=== PATIENT | female | born 1995 | race Caucasian/White ===

== ENCOUNTER → 2022-05-26 | Outpatient (REF) | payer SELFPAY ==
--- NOTE | 2022-05-26 08:45 | CA_ITS ---
Transthoracic Echocardiogram Patient (Last, First, Middle): Janelle Perez, Gender: Female Date of : 1995 Age: 26 Procedure Date: 05/26/2022 Procedure Type: Transthoracic Echocardiogram Location: OP Height: 172.72 cm Weight: 104.33 kg BSA: 2.17 m2 Heart Rate: 74 bpm BP: 122 / 72 mmHg Mounter Clarinets: NEERAJ Referring MD: Obey Yousif MD Symptoms: R06.02 - Shortness of breath Study Quality: Adequate ECG Rhythm: Sinus Conclusions: - Mildly increased left and right ventricular cavity size. However, probably within acceptable limits when indexed for body surface area. - The left ventricular systolic function is normal. The calculated ejection fraction is 60% by biplane method. - No obvious valvular pathology seen on this study. Findings Left Ventricle Mildly increased left ventricular cavity size. There is normal left ventricular wall thickness. The left ventricular systolic function is normal. The calculated ejection fraction is 60% by biplane method. There is no evidence of regional wall motion abnormalities. Diastolic function is normal for age. LV peak GLS -19.8%. Right Ventricle Mildly increased right ventricular cavity size. There is normal right ventricular systolic function. Atria Both atria are normal in size. Aortic Valve There is a normal trileaflet aortic valve. There is no aortic valve stenosis. There is no aortic valve regurgitation. Mitral Valve The mitral valve appears normal. There is no mitral valve regurgitation. There is no mitral valve stenosis. Pulmonic Valve The pulmonic valve is likely normal. Tricuspid Valve Normal tricuspid valve structure. There is no tricuspid valve regurgitation. There is no evidence of pulmonary hypertension. Great Vessels The asc aorta is normal in size. Venous The inferior vena cava is normal in size and collapses greater than 50% with inspiration. Pericardium/Pleural There is no evidence of pericardial effusion. Prior Study Comparison No prior study available for comparison. Recommendations, Care & Conclusions No obvious valvular pathology seen on this study. Measurements 2D Linear Measurements IVSd: 0.76 0.6-0.9/0.6-1.0 cm LVIDd: 6.08 3.9-5.3/4.2-5.9 cm LVIDd Index: 2.80 2.4-3.2/2.2-3.1 cm/m2 LVIDs: 3.88 2.0-3.6 cm LVPWd: 0.72 0.7-1.1 cm LA Diam: 3.60 2.7-3.8/3.0-4.0 cm LAIDs Index: 1.66 1.5-2.3 cm/m2 LV Mass: 215.26 67-162/88-224 g LV Mass Index: 99.20 43-95/49-115 g/m2 LVOT Diam: 2.10 3.0+(-)1.3 cm 2D Systolic Function EF 4C: 58.20 >55% EF 2C: 62.00 >55% EF BiP: 59.50 >55% Mitral Valve MV Pk E: 0.99 MV PK A: 0.52 MV Decel Time: 161.00 E/A: 1.90 E'Lateral: 12.70 E'Medial: 8.70 E/E' Med: 11.30 E/E' Lat: 7.80 PHT: 47.00 MVA PHT: 4.68 Decel [place]: 6.11 Aortic Valve AoV Pk Bon: 1.24 AoV Pk Grad: 6.00 JANELLE: 2.79 LVOT LVOT Pk Bon: 1.00 LVOT Mn Bon: 0.66 LVOT VTI: 0.21 LVOT Pk Grad: 4.00 LVOT Mn Grad: 2.00 LVOT Diam: 2.10 LVOT Area: 3.46 Diastolic Function MV Pk E: 0.99 MV Pk A: 0.52 E/A: 1.90 E'Medial: 8.70 E/E' Med: 11.30 E' Laterial: 12.70 E/E' Lat: 7.80 Right Ventricle TAPSE (mm): 21.40 TVS' Bon: 11.90 Tricuspid Valve TR Pk Bon: 1.95 TR Pk Grad: 15.00 RA Press: 3.00 RVSP: 18.00 Great Vessels Aorta Sinus of Valsalva: 3.20 2.0-3.5 cm Ao Asc: 3.00 2.1-3.4 cm Pulmonary Veins Pulm Vein S/D 1.40 Pulmonary Valve PV Pk Bon: 0.96 Peak PV Grad: 4.00 Updated in Other Vendor System with Status of Final Daniel Garcia MD electronically signed on 05/26/2022 10:25:34 AM with status of Final
--- NOTE | 2022-05-26 08:54 | ECG_ITS ---
Test Reason : SOB Blood Pressure : / mmHG Vent. Rate : 061 BPM Atrial Rate : 061 BPM P-R Int : 136 ms QRS Dur : 088 ms QT Int : 396 ms P-R-T Axes : 012 026 016 degrees QTc Int : 398 ms Sinus rhythm with marked sinus arrhythmia Normal ECG No previous ECGs available Referred By: Obey Yousif Electronically Signed By:JORGE PETERSEN
== END ==
LOC: HO.CARD
PROVIDERS: Visit Provider Internal Medicine Cardiovascular Disease
DX: R06.02 Shortness of breath (principal)
CPT/HCPCS: 93005; 93306